=== PATIENT | female | born 1970 | race Caucasian/White ===

== ENCOUNTER 2021-12-29 10:34 | Outpatient (CLI) | payer OTHER, SELFPAY ==
[2021-12-29 14:00] LABS: Chloride* 103 mmol/L (96-114); Potassium* 4.3 mmol/L (3.6-5.1); Sodium* 139 mmol/L (135-149)
[2021-12-29 14:03] LABS: Blood Urea Nitrogen* 18 mg/dL (7-30); Carbon Dioxide* 27 mmol/L (20-32); Cholesterol* 257 mg/dL (90-199); Creatinine* 0.7 mg/dL (0.5-1.5); Estimated Glomerular Filt Rate 105 ml/min
[2021-12-29 14:04] LABS: Calcium* 9.9 mg/dL (8.4-10.6); Glucose* 98 mg/dL (60-115); HDL Cholesterol* 40 mg/dL (>=50); LDL Cholesterol Calculated 150 mg/dL (<100); Triglycerides* 334 mg/dL (40-149)
== END 2021-12-29 10:35 | disposition home or self-care (01) ==
PROVIDERS: PCP Internal Medicine; Visit Provider Internal Medicine
DX: E78.5 Hyperlipidemia, unspecified (principal); I10 Essential (primary) hypertension
CPT/HCPCS: 80048; 80061

== ENCOUNTER 2022-02-04 13:00 | Outpatient (RCR) | payer OTHER, SELFPAY | END 2022-03-26 15:44 | disposition home or self-care (01) | PROVIDERS: PCP Internal Medicine; Visit Provider Internal Medicine | DX: M25.552 Pain in left hip (principal); Z51.89 Encounter for other specified aftercare | CPT/HCPCS: 97110; 97140; 97162 ==

== ENCOUNTER 2022-02-06 12:27 | Outpatient (CLI) | payer OTHER, SELFPAY | END 2022-02-06 12:28 | disposition home or self-care (01) | LOC: OP CLINIC 12:28 | PROVIDERS: PCP Internal Medicine; Visit Provider Internal Medicine | DX: Z12.11 Encounter for screening for malignant neoplasm of colon (principal) | CPT/HCPCS: 45378; J2250; J2405; J3010 ==

== ENCOUNTER 2022-03-09 11:20 | Outpatient (CLI) | payer OTHER, SELFPAY ==
--- NOTE | 2022-03-09 11:30 | CRLHL7_ITS ---
For Patients: As a result of the Century Cures Act, medical imaging exams and procedure reports are released immediately into your electronic medical record. You may view this report before your referring provider. If you have questions, please contact your health care provider. BILATERAL SCREENING MAMMOGRAM WITH COMPUTER-AIDED DETECTION TECHNIQUE: CC and MLO views were obtained. These mammographic images have been obtained using full-field digital technique. These mammographic images were interpreted with the benefit of computer-aided detection. COMPARISON FILM: 01/03/18, 01/15/16. FINDINGS: The breasts are heterogeneously dense, which may obscure small masses IMPRESSION: There is no radiographic evidence for malignancy. ASSESSMENT: BI-RADS Category 2: Benign RECOMMENDATION: Routine screening mammogram in 1 year. A lay language report of this examination will be provided to the patient. Ramin Gomes M.D. Diagnostic Radiologist [email or web address] LANCE/Dictated by: Ramin Gomes MD @ 03/10/2022 12:09:00 PM (Electronically Signed)
== END 2022-03-09 11:21 | disposition home or self-care (01) ==
LOC: MAMMO 11:21
PROVIDERS: PCP Internal Medicine; Visit Provider Internal Medicine
DX: Z12.31 Encounter for screening mammogram for malignant neoplasm of breast (principal); R92.2 Inconclusive mammogram
CPT/HCPCS: 77067

== ENCOUNTER 2023-04-01 10:20 | Outpatient (CLI) | payer OTHER, SELFPAY | END 2023-04-01 10:21 | disposition home or self-care (01) | LOC: NFLDREF 04-02 07:28 | PROVIDERS: PCP Internal Medicine; Referring Provider Internal Medicine; Visit Provider Internal Medicine | DX: I10 Essential (primary) hypertension (principal); E78.5 Hyperlipidemia, unspecified; E66.01 Morbid (severe) obesity due to excess calories; Z86.59 Personal history of other mental and behavioral disorders | CPT/HCPCS: 80048; 80061 ==

== ENCOUNTER 2023-05-06 11:27 | Outpatient (CLI) | payer OTHER, SELFPAY ==
--- NOTE | 2023-05-06 11:30 | MM_ITS ---
Patient: BRIGITTE MCKENNA Facility:?[facility] Patient ID:?[id number] Site Patient ID:?[id number]. Site :?[id number] Study:?XRay-Breast Bilateral 3D W/CAD-05/06/2023 11:55:32 AM Ordering Physician:Elo Little Final Report: BILATERAL DIGITAL TOMOSYNTHESIS SCREENING MAMMOGRAM WITH COMPUTER-AIDED DETECTION CLINICAL HISTORY: Routine screening exam. COMPARISON: 03/09/2022, 11/24/2018, 01/03/2018 TECHNIQUE: Digital tomosynthesis mammogram in CC and MLO projections including computer- aided detection (CAD). BREAST COMPOSITION: Scattered fibroglandular densities. FINDINGS: RIGHT Breast: No suspicious findings LEFT Breast: No suspicious findings. IMPRESSION: No suspicious findings. RECOMMENDATIONS: Annual bilateral screening mammography. BI-RADS category 1. Negative. Dictated by Ramin Gomes MD @ 05/06/2023 12:46:02 PM Signed by:?Ramin Gomes MD @05/06/2023 12:46:02 PM (Electronic Signature)
== END 2023-05-06 11:28 | disposition home or self-care (01) ==
LOC: MAMMO 11:28
PROVIDERS: PCP Internal Medicine; Visit Provider Internal Medicine
DX: Z12.31 Encounter for screening mammogram for malignant neoplasm of breast (principal)
CPT/HCPCS: 77063; 77067

== ENCOUNTER 2024-10-03 08:30 | Outpatient (CLI) | payer OTHER, SELFPAY | END 2024-10-03 08:31 | disposition home or self-care (01) | LOC: NFLDREF 10-05 13:14 | PROVIDERS: PCP Internal Medicine; Referring Provider Internal Medicine; Visit Provider Internal Medicine | DX: E78.5 Hyperlipidemia, unspecified (principal); I10 Essential (primary) hypertension | CPT/HCPCS: 80048; 80061 ==